=== PATIENT | female | born 1955 | race Caucasian/White ===

== ENCOUNTER → 2018-01-18 17:56 | Outpatient (CLI) | payer OTHER ==
[2018-01-18 18:28] LABS: APPEARANCE CLEAR (CLEAR); BILIRUBIN NEGATIVE (NEGATIVE); COLOR YELLOW (YELLOW); GLUCOSE 100 mg/dL (NEGATIVE); KETONE NEGATIVE (NEGATIVE); NITRITE NEGATIVE (NEGATIVE); PROTEIN NEGATIVE (NEGATIVE); UROBILINOGEN NORMAL (NORMAL)
[2018-01-18 18:40] LABS: BASOPHILS 0.4 % (0-2); EOSINOPHILS 1.2 % (0-7); HEMATOCRIT 28.3 % (36.0-48.0); IMMATURE GRANULOCYTES 0.4 % (0-5); LYMPHOCYTES 13.7 % (15-50); MCH 21.1 pg (26.0-34.0); MCHC 26.5 g/dL (31.0-37.0); MCV 79.5 fL (80.0-100.0); MEAN PLATELET VOLUME 8.7 fL (7.4-10.4); MONOCYTES 9.6 % (2-11); NEUTROPHILS 74.7 % (40-80); PLATELET COUNT 287 10x3/uL (130-400); RBC 3.56 10x6/uL (4.00-5.40); RDW 18.5 % (11.5-14.5); WBC 11.1 10x3/uL (4.8-10.8)
[2018-01-18 19:00] LABS: HEMOGLOBIN 7.5 g/dL (12-16)
== END | disposition home or self-care (01) ==
LOC: D.LABREF 17:56
PROVIDERS: Family Medicine
DX: E11.9 Type 2 diabetes mellitus without complications (principal); I10 Essential (primary) hypertension; Z87.440 Personal history of urinary (tract) infections; D64.9 Anemia, unspecified; J44.9 Chronic obstructive pulmonary disease, unspecified

== ENCOUNTER → 2018-04-10 20:20 | Outpatient (CLI) | payer OTHER ==
[2018-04-10 20:28] LABS: APPEARANCE CLEAR (CLEAR); COLOR DK YELLOW (YELLOW)
[2018-04-10 20:29] LABS: BILIRUBIN NEGATIVE (NEGATIVE); GLUCOSE NEGATIVE (NEGATIVE); KETONE NEGATIVE (NEGATIVE); NITRITE NEGATIVE (NEGATIVE); PROTEIN NEGATIVE (NEGATIVE); UROBILINOGEN NORMAL (NORMAL)
[2018-04-10 20:30] LABS: RED CELLS - URINE 0-5 /hpf (0-5)
[2018-04-10 20:31] LABS: BACTERIA MODERATE /hpf (NONE SEEN); EPITHELIAL CELLS 0-5 /hpf (0-5); HYALINE CAST 0-5 /lpf (NONE SEEN)
== END | disposition home or self-care (01) ==
LOC: D.LABREF 20:20
PROVIDERS: Family Medicine
DX: R30.0 Dysuria (principal)

== ENCOUNTER → 2018-12-04 18:21 | Outpatient (CLI) | payer OTHER ==
[2018-12-04 19:34] LABS: APPEARANCE TURBID (CLEAR); BILIRUBIN NEGATIVE (NEGATIVE); COLOR YELLOW (YELLOW); GLUCOSE NEGATIVE (NEGATIVE); KETONE NEGATIVE (NEGATIVE); NITRITE NEGATIVE (NEGATIVE); PROTEIN NEGATIVE (NEGATIVE); SPECIFIC GRAVITY 1.025 (1.005-1.020); UROBILINOGEN NORMAL (NORMAL)
[2018-12-04 19:44] LABS: AMORPHOUS SEDIMENT >1+ /lpf (NONE SEEN); BACTERIA MANY /hpf (NONE SEEN); EPITHELIAL CELLS 0-5 /hpf (0-5); HYALINE CAST RARE /lpf (NONE SEEN); RED CELLS - URINE RARE /hpf (0-5); WHITE CELLS - URINE 0-5 /hpf (0-5)
== END | disposition home or self-care (01) ==
LOC: D.LABREF 18:21
PROVIDERS: ATTEND Family Medicine
DX: J44.9 Chronic obstructive pulmonary disease, unspecified (principal)

== ENCOUNTER → 2019-01-28 16:13 | Outpatient (CLI) | payer OTHER ==
[2019-01-28 16:43] LABS: BASOPHILS 0.5 % (0-2); EOSINOPHILS 1.8 % (0-7); HEMATOCRIT 32.1 % (36.0-48.0); HEMOGLOBIN 9.4 g/dL (12-16); IMMATURE GRANULOCYTES 0.2 % (0-5); LYMPHOCYTES 17.7 % (15-50); MCH 24.5 pg (26.0-34.0); MCHC 29.3 g/dL (31.0-37.0); MCV 83.8 fL (80.0-100.0); MONOCYTES 8.9 % (2-11); NEUTROPHILS 70.9 % (40-80); RBC 3.83 10x6/uL (4.00-5.40); RDW 20.4 % (11.5-14.5)
[2019-01-28 16:45] LABS: PLATELET COUNT 420 10x3/uL (130-400)
== END | disposition home or self-care (01) ==
LOC: D.LABREF 16:13
PROVIDERS: ATTEND Family Medicine
DX: R53.83 Other fatigue (principal); Z51.81 Encounter for therapeutic drug level monitoring; Z79.899 Other long term (current) drug therapy; J44.9 Chronic obstructive pulmonary disease, unspecified; I27.20 Pulmonary hypertension, unspecified